=== PATIENT | female | born 1995 | race Two or more races ===

== ENCOUNTER → 2016-08-27 | Outpatient (CLI) | payer OTHER ==
[~2016-08-27] MED LIST: DICYCLOMINE HCL20 MG PO; FLEXERIL10 M1 PO; IBUPROFEN600 MG PO; VOLTAREN75 MG PO
--- NOTE | ~2016-08-27 | EE ---
Unit #: [id number] #: [id number] Patient: BAY DAVIS [id number] [address] [id number] O MR#: [id number] NAME: BAY DAVIS : 1995 SEX: F STUDY DATE/TIME: 08/27/2016 UNIT: CEEG ROOM: STUDY DESCRIPTION: EEG Attending Physician: Terrell Jones M.D. Referring Physician: Terrell Jones M.D. Primary Care Physician: Terrell Jones M.D. NEURODIAGNOSTICS REPORT PROCEDURE PERFORMED EEG. REASON FOR STUDY Blurry vision. EEG DESCRIPTION This is an outpatient, digitally recorded, multi-montage, adult EEG with leads placed according to the International 10-20 system. Hyperventilation and photic stimulation were attempted. PROCEDURE REPORT With the patient fully aroused, there is 9-10 Hz posterior dominant alpha rhythm, which is symmetric and attenuates with eyes opening. The patient did become drowsy, but I did not see any good deeper sustained stages of sleep. Hyperventilation was attempted, but I did not see any significant changes. Photic stimulation was attempted in intermittent stepwise pattern up to flash frequency of 30 Hz, but I did not see any driving, asymmetry or paroxysmal activity. No clinical events were seen. IMPRESSION This is likely a normal adult, awake and drowsy EEG. An EEG like this does not rule out epilepsy. Clinical correlation is recommended. Dictated by... Adán Fagan/izzy TD: 08/29/2016 11:46 JOB #: [id number] Unit #: [id number] #: [id number] Patient: BAY DAVIS NEURODIAGNOSTICS REPORT Page 1 of 1 X Rachid Mchugh MD NEURODIAGNOSTICS REPORT
== END | disposition home or self-care (01) ==
LOC: CEEG 09:46
DX: H53.8 Other visual disturbances (principal)
CPT/HCPCS: 95816